=== PATIENT | male | born 1970 | race Caucasian/White ===

== ENCOUNTER 2021-04-22 14:28 | Emergency (ER) | payer OTHER ==
[~2021-04-22] VITALS: Ht 175.3 cm; Wt 66.0 kg
[2021-04-22 16:00] VITALS: BP 165/73
[2021-04-22] MEDS ORDERED: LIDOCAINE 1% Multi-Dose 20 ML VIAL. INJ ONE (16:30)
--- NOTE | 2021-04-22 16:37 | PHYS DOC ---
Past Medical History Past Medical History: No Pertinent History Past Surgical History: No Surgical History Smoking Status: Never Smoker Alcohol Use: None General Adult EDM: Chief Complaint: LACERATION/AVULSION HPI: HPI: Patient is a 51 year old male who presents with here from [facility] after he was cut with a razor blade on the left forearm. Laceration is approximately 3 inches long. Patient is up-to-date on his tetanus. He is not on blood thinners. Patient denies focal weakness, numbness or tingling, loss of sensation. He rates his pain discomfort at a 3 out of 10. Review of Systems: Review of Systems: Constitutional: Denies fever or chills. [] Eyes: Denies change in visual acuity. [] HENT: Denies nasal congestion or sore throat. [] Respiratory: Denies cough or shortness of breath. [] Cardiovascular: Denies chest pain or edema. [] GI: Denies abdominal pain, nausea, vomiting, bloody stools or diarrhea. [] : Denies dysuria. [] Musculoskeletal: Denies back pain or joint pain. + Left forearm pain [] Integument: Denies rash. + Left forearm laceration [] Neurologic: Denies headache, focal weakness or sensory changes. [] Endocrine: Denies polyuria or polydipsia. [] Lymphatic: Denies swollen glands. [] Psychiatric: Denies depression or anxiety. [] Heart Score: C/O Chest Pain: No Risk Factors: Risk Factors: DM, Current or recent (<one month) smoker, HTN, HLP, family history of CAD, obesity. Risk Scores: Score 0 - 3: 2.5% MACE over next 6 weeks - Discharge Home Score 4 - 6: 20.3% MACE over next 6 weeks - Admit for Clinical Observation Score 7 - 10: 72.7% MACE over next 6 weeks - Early Invasive Strategies Current Medications: Current Medications Medications (Trade) Dose Ordered Sig/Karla Start Time Stop Time Status Last Admin Dose Admin Lidocaine HCl (Lidocaine 1% 20ml Vial) 20 ml 1X ONCE 04/22/21 16:30 04/22/21 16:31 DC Allergies: Allergies: Allergies Coded Allergies Type Severity Reaction Last Updated Verified No Known Drug Allergies 04/22/21 No Physical Exam: PE: Constitutional: Well developed, well nourished, no acute distress, non-toxic appearance. [] HENT: Normocephalic, atraumatic, bilateral external ears normal, oropharynx moist, no oral exudates, nose normal. [] Eyes: PERRLA, EOMI, conjunctiva normal, no discharge. [] Neck: Normal range of motion, no tenderness, supple, no stridor. [] Cardiovascular:Heart rate regular rhythm, no murmur [] Lungs & Thorax: Bilateral breath sounds clear to auscultation [] Abdomen: Bowel sounds normal, soft, no tenderness, no masses, no pulsatile masses. [] Skin: Warm, dry, no erythema, no rash. Left forearm laceration [] Back: No tenderness, no CVA tenderness. [] Extremities: No tenderness, no cyanosis, no clubbing, ROM intact, no edema. [] Neurologic: Alert and oriented X 3, normal motor function, normal sensory function, no focal deficits noted. [] Psychologic: Affect normal, judgement normal, mood normal. [] Current Patient Data: Vital Signs: Vital Signs Date Time Temp Pulse Resp B/P (MAP) Pulse Ox O2 Delivery O2 Flow Rate FiO2 04/22/21 16:00 98.7 75 16 165/73 (103) 98 Room Air 98.7 EKG: EKG: [] Radiology/Procedures: Radiology/Procedures: [] Impression: [facility] [address] [place], [place] [id number] IMAGING REPORT Signed PATIENT: CASS GILBERT ACCOUNT: [id number] : 1970 LOCATION: ER AGE: 51 SEX: M EXAM STATUS: REG ER ORD. PHYSICIAN: LANNY VALIENTE APRN REASON: laceration PROCEDURE: FOREARM LEFT Left forearm 2 views: Reason for examination: Laceration. No fracture is seen. The bone density is normal. No abnormal periosteal reaction is seen. Elbow and wrist joints show no abnormalities. No radiopaque foreign bodies are identified. IMPRESSION: No acute bony abnormality seen at the left forearm. Electronically signed by: Taylor Gould MD (04/22/2021 4:52 PM) [facility] DICTATED and SIGNED BY: TAYLOR GOULD MD DATE: 04/22/21 [id number] 0 Course & Med Decision Making: Course & Med Decision Making Pertinent Labs and Imaging studies reviewed. (See chart for details) See HPI. Alert and oriented x4. Ambulatory with a steady gait. Speaks in full clear sentences. Officers are at bedside. Skin pink warm and dry. Radial pulse strong present. He has full range of motion in all extremities. He can make a tight fist and wiggle all of his fingers. Has full range of motion in the extremity. Good strength. Cap refill less than 2 seconds. Bleeding is controlled. Laceration repair Location: Left forearm lateral is approximately 3 inches long and 2mm deep. Local anesthesia: 1% lidocaine Interrupted sutures/Internal sutures: 15 sutures using 3-0 Nerve/ligament/muscle damage: None Cleaning and irrigation: Saline and chlorhexidine The appropriate timeout was taken. The area was prepped and draped in the usual sterile fashion. The wound was copiously irrigated with normal saline and chlorhexidine. Patient tolerated well without complication. Dressing was applied to the area follow-up education is given to observe for signs and symptoms of infection, bleeding and to follow-up promptly if these occur. Patient can return in 48 hours for a wound recheck. Sutures to be removed in 7 to 10 days. Tonya Disclaimer: Tonya Disclaimer: This electronic medical record was generated, in whole or in part, using a voice recognition dictation system. Departure Departure Impression: Primary Impression: Laceration Disposition: HOME / SELF CARE / HOMELESS Condition: STABLE Referrals: NO PCP (PCP) Patient Instructions: Laceration Care, Adult Additional Instructions: Sutures need to be removed in 10 days. Keep it clean and covered. Watch for signs of infection. Take Tylenol or ibuprofen for your pain. LANNY VALIENTE RADIOLOGIC TECHNOLOGIST [employer]AM[employer] April 22, 2021 16:37
--- NOTE | 2021-04-22 16:54 | RAD ---
Left forearm 2 views: Reason for examination: Laceration. No fracture is seen. The bone density is normal. No abnormal periosteal reaction is seen. Elbow and w rist joints show no abnormalities. No radiopaque foreign bodies are identified. IMPRESSION: No acute bony abnormality seen at the left forearm. Electronically signed by: Carline Aguayo MD (04/22/2021 4:52 PM) [facility]
== END 2021-04-22 18:45 | disposition home or self-care (01) ==
LOC: ER 14:28 → EEVIPCON 14:28 → ER 18:45
DX: S51.812A Laceration without foreign body of left forearm, initial encounter (principal); W27.8XXA Contact with other nonpowered hand tool, initial encounter; Y93.89 Activity, other specified; Y92.89 Other specified places as the place of occurrence of the external cause; Y99.8 Other external cause status
CPT/HCPCS: 12002; 73090; 99283; J3490